=== PATIENT | male | born 1975 | race Caucasian/White ===

== ENCOUNTER 2018-09-25 20:27 | Outpatient (CLI) | payer OTHER | END 2018-09-25 20:28 | disposition home or self-care (01) | LOC: SC 20:27 | PROVIDERS: ATTEND Internal Medicine Pulmonary Disease | DX: G47.33 Obstructive sleep apnea (adult) (pediatric) (principal); G47.61 Periodic limb movement disorder | CPT/HCPCS: 95810 ==

== ENCOUNTER 2018-10-15 09:13 | Outpatient (CLI) | payer OTHER | END 2018-10-15 09:14 | disposition home or self-care (01) | LOC: SC 09:13 | PROVIDERS: ATTEND Nurse Practitioner Family | DX: G47.33 Obstructive sleep apnea (adult) (pediatric) (principal) | CPT/HCPCS: 99212; 99214 ==

== ENCOUNTER 2018-12-28 09:07 | Outpatient (CLI) | payer OTHER | END 2018-12-28 09:08 | disposition home or self-care (01) | LOC: SC 09:07 | PROVIDERS: ATTEND Nurse Practitioner Family | DX: G47.33 Obstructive sleep apnea (adult) (pediatric) (principal) | CPT/HCPCS: 99212; 99214 ==

== ENCOUNTER 2019-01-27 09:11 | Outpatient (CLI) | payer OTHER | END 2019-01-27 09:12 | disposition home or self-care (01) | LOC: SC 09:11 | PROVIDERS: ATTEND Nurse Practitioner Family | DX: G47.33 Obstructive sleep apnea (adult) (pediatric) (principal) | CPT/HCPCS: 99212; 99214 ==

== ENCOUNTER 2019-01-29 20:26 | Emergency (ER) | payer OTHER ==
[2019-01-29 20:54] LABS: BILIRUBIN,URINE NEGATIVE (NEGATIVE); GLUCOSE, URINE (UA) NEGATIVE (NEGATIVE); KETONES,URINE (UA) NEGATIVE (NEGATIVE); LEUKOCYTE ESTERASE, URINE NEGATIVE (NEGATIVE); NITRITE,URINE NEGATIVE (NEGATIVE); OCCULT BLOOD,URINE NEGATIVE (NEGATIVE); PH,URINE 6.5 PH (5.0-7.5); PROTEIN,URINE NEGATIVE (NEGATIVE); UROBILINOGEN,URINE 0.2 (NORMAL) E.U./dL (NORMAL)
[2019-01-29 20:56] LABS: BASOPHILS % (AUTO) 0.5 %; EOSINOPHILS # (AUTO) 0.1 10^3/uL (0.0-0.7); EOSINOPHILS % (AUTO) 1.5 %; HGB - HEMOGLOBIN 15.2 g/dL (14.0-18.0); MEAN CORPUSCULAR HGB CONC 32.9 g/dL (32.0-36.0); MEAN CORPUSCULAR VOLUME 85.3 fL (80.0-94.0); MEAN PLATELET VOLUME 8.2 fL (7.4-11.4); MONOCYTES # (AUTO) 0.8 10^3/uL (0.0-1.0); MONOCYTES % (AUTO) 8.6 %; NEUTROPHILS # (AUTO) 6.9 10^3/uL (1.5-6.6); NEUTROPHILS % (AUTO) 69.4 %; PLT - PLATELET COUNT 234 10^3/uL (130-450); RED BLOOD COUNT 5.41 10^6/uL (4.70-6.10); RED CELL DISTRIBUTION WIDTH 14.3 % (12.0-15.0); WHITE BLOOD COUNT 9.9 x10^3/uL (4.8-10.8)
[2019-01-29 20:57] LABS: CLARITY,URINE CLEAR (CLEAR)
[2019-01-29 21:11] LABS: ALBUMIN 4.5 g/dL (3.2-5.5); ALBUMIN/GLOBULIN RATIO 1.4 (1.0-2.2); BILIRUBIN,TOTAL 0.5 mg/dL (0.2-1.0); CALCIUM 9.4 mg/dL (8.5-10.3); CREATININE 0.9 mg/dL (0.6-1.2); TOTAL PROTEIN 7.8 g/dL (6.7-8.2)
--- NOTE | 2019-01-29 21:57 | ED Physician Documentation ---
PD HPI ABD PAIN - Stated complaint Stated Complaint: ABD PX - Chief complaint Chief Complaint: Abd Pain - History obtained from History obtained from: Patient - History of Present Illness Timing - onset: How many days ago (2-3) Timing - duration: Days (2-3) Timing - details: Gradual onset, Still present Quality: Aching, Sharp, Pain Location: LUQ Radiation: Chest, Left flank Improved by: No: Eating Worsened by: Breathing, Position (feels worse lying on side). No: Eating, Moving, Palpation Associated symptoms: Fever (felt some chills/feverish today). No: Nausea, Vomiting, Diarrhea, Constipation, Dysuria Similar symptoms before: Has not had sx before Recently seen: Not recently seen Review of Systems Constitutional: reports: Fever (mild today), Chills Nose: reports: Rhinorrhea / runny nose, Congestion Throat: reports: Sore throat Cardiac: denies: Palpitations Respiratory: reports: Cough (mild). denies: Dyspnea, Wheezing GI: reports: Abdominal Pain, Nausea. denies: Vomiting, Constipation, Diarrhea : denies: Dysuria, Frequency, Hematuria Skin: denies: Rash Musculoskeletal: denies: Neck pain, Back pain PD PAST MEDICAL HISTORY - Past Medical History Past Medical History: Yes Cardiovascular: Hypertension - Past Surgical History Past Surgical History: Yes General: Colonoscopy, Other - Present Medications Home Medications: Ambulatory Orders Medication Instructions Recorded Confirmed Azithromycin [Zithromax] 0 mg PO DAILY #6 tablet 01/30/19 Hydrocodone/Acetaminophen [[place] 1 each PO Q6H PRN #15 tablet 01/30/19 5-325 Tablet] Naproxen 500 mg PO BID #20 tablet 01/30/19 - Allergies Allergies/Adverse Reactions: Allergies Allergy/AdvReac Type Severity Reaction Status Date / Time acetaminophen [From Percocet] AdvReac Nausea Verified 01/29/19 20:32 oxycodone [From Percocet] AdvReac Nausea Verified 01/29/19 20:32 - Social History Does the pt smoke?: No Smoking Status: Never smoker Does the pt drink ETOH?: Yes Does the pt have substance abuse?: No - Immunizations Immunizations are current?: Yes PD ED PE NORMAL - Vitals Vital signs reviewed: Yes - General General: Alert and oriented X 3, No acute distress, Well developed/nourished - HEENT HEENT: Pharynx benign - Neck Neck: Supple, no meningeal sign, No adenopathy - Cardiac Cardiac: RRR, No murmur - Respiratory Respiratory: No: Clear bilaterally (no wheezing, mild congestion heard left lung base. ) - Abdomen Abdomen: Normal bowel sounds, Soft, Non distended, Other (tender LUQ with local guarding but no percussion nor rebound tenderness. ) - Back Back: No CVA TTP - Derm Derm: Normal color, Warm and dry, No rash - Extremities Extremities: No deformity, No tenderness to palpate, No edema, No calf tenderness / cord - Neuro Neuro: Alert and oriented X 3, No motor deficit, Normal speech Results - Vitals Vitals: Oxygen O2 Source Room air - Labs Labs: Laboratory Tests 01/29/19 01/29/19 01/29/19 20:39 20:48 20:48 WBC 9.9 RBC 5.41 Hgb 15.2 Hct 46.1 MCV 85.3 MCH 28.0 MCHC 32.9 RDW 14.3 Plt Count 234 MPV 8.2 Neut # (Auto) 6.9 H Lymph # (Auto) 2.0 [place] # (Auto) 0.8 Eos # (Auto) 0.1 Baso # (Auto) 0.0 Absolute Nucleated RBC 0.00 Nucleated RBC % 0.0 Sodium 138 Potassium 3.9 Chloride 101 Carbon Dioxide 28 Anion Gap 9.0 BUN 15 Creatinine 0.9 Estimated GFR (MDRD) 92 Glucose 135 H Calcium 9.4 Total Bilirubin 0.5 AST 22 ALT 38 Alkaline Phosphatase 73 Total Protein 7.8 Albumin 4.5 Globulin 3.3 Albumin/Globulin Ratio 1.4 Lipase 29 Urine Color YELLOW Urine Clarity CLEAR Urine pH 6.5 Ur Specific [place] 1.015 Urine Protein NEGATIVE Urine Glucose (UA) NEGATIVE Urine Ketones NEGATIVE Urine Occult Blood NEGATIVE Urine Nitrite NEGATIVE Urine Bilirubin NEGATIVE Urine Urobilinogen 0.2 (NORMAL) Ur Leukocyte Esterase NEGATIVE Ur Microscopic Review NOT INDICATED Urine Culture Comments NOT INDICATED PD MEDICAL DECISION MAKING - ED course Complexity details: reviewed results (surprisingly, no signs of intra-abdominal process, but does have left lower pneumonia. Had had minimal cough and not feeling URI. No unusual exposures to illness (children have CF and carriers of MRSA and Pseudomonas but no current active infections).), considered differential, d/w patient Departure - Departure Disposition: Home, Self Care Clinical Impression: Abdominal pain, left upper quadrant Pneumonia Qualifiers: Pneumonia type: due to unspecified organism Laterality: left Lung location: lower lobe of lung Qualified Code(s): J18.1 - Lobar pneumonia, unspecified organism Condition: Stable Record reviewed to determine appropriate education?: Yes Instructions: ED Pneumonia Adult Follow-Up: ARTEMIO HERNANDEZ MD [Primary Care Provider] - Prescriptions: Azithromycin [Zithromax] 0 mg PO DAILY #6 tablet Hydrocodone/Acetaminophen [[place] 5-325 Tablet] 1 each PO Q6H PRN #15 tablet PRN Reason: Pain Naproxen 500 mg PO BID #20 tablet Comments: Stay well-hydrated. Rest at home for 2 to 3 days. Use naproxen anti- inflammatory twice daily for the next 7 to 10 days. Add Tylenol 4 times a day for pain or hydrocodone for worse pain. Your CT showed a normal appearance in the abdominal cavity. You do have fluid in the lower left lung consistent with pneumonia. We will treated with antibio tic azithromycin. Recheck with your primary care in about 3 days for reevaluation. Return if worsening symptoms. Forms: Activity restrictions Discharge Date/Time: 01/30/19 00:32
[2019-01-29] MEDS ORDERED: SODIUM CHLORIDE 0.9% 1,000 ML IV ONE (22:16)
[2019-01-29] MEDS ORDERED: KETOROLAC 15 MG/ML VIAL IVP STA (22:16)
[2019-01-29] MEDS ORDERED: ONDANSETRON 4 MG/2 ML VIAL IVP STA (22:16)
[2019-01-29] MEDS ORDERED: HYDROmorphone 1 MG/ML CARPUJECT IVP STA (22:16)
[2019-01-29] MEDS ORDERED: IOVERSOL 320 100 ML VIAL IVP ONE ×2 (22:37→23:00)
--- NOTE | 2019-01-29 23:19 | CT Report ---
Reason: LUQ abd pain for 3 days; worsening Procedure Date: 01/29/2019 Accession Number: [id number] / [id number] Procedure: CT - Abdomen/Pelvis W CPT Code: FULL RESULT: EXAM: CT ABDOMEN AND PELVIS EXAM DATE: 01/29/2019 10:45 PM. CLINICAL HISTORY: Left upper quadrant abdominal pain for 3 days, worsening. COMPARISONS: None. TECHNIQUE: Routine helical CT imaging was performed through the abdomen and pelvis. IV contrast: 100 mL OPTIRAY 320. Enteric contrast: No. Reconstructions: Coronal and sagittal. In accordance with CT protocol optimization, one or more of the following dose reduction techniques were utilized for this exam: automated exposure control, adjustment of mA and/or KV based on patient size, or use of iterative reconstructive technique. FINDINGS: Lung bases: Small left pleural effusion. Mild patchy left lower lobe lung consolidations at the base with adjacent airspace disease. Mild lingular consolidation. These findings are concerning for left lower lobe and lingular pneumonia. Liver: Diffuse fatty liver. Gallbladder: Unremarkable. Bile Ducts: Unremarkable. Pancreas: Unremarkable. Spleen: Unremarkable. Adrenals: Unremarkable. Kidneys: Unremarkable. Bowel: Normal appendix. No acute bowel findings are seen. No free fluid or free air. Pelvis: The bladder and remaining pelvic organs appear unremarkable. Vasculature: No acute findings. Bones: No acute bone findings. IMPRESSION: 1. Small left pleural effusion. Mild patchy left lower lobe lung consolidations at the base with adjacent airspace disease. Mild lingular consolidation. These findings are concerning for left lower lobe and lingular pneumonia. 2. Fatty liver. RADIA
[2019-01-29] MEDS ORDERED: cefTRIAXone 1 GM VIAL IVP STA (23:28)
[2019-01-29] MEDS ORDERED: levoFLOXacin 250 MG TABLET PO STA (23:57)
[2019-01-29] MEDS ORDERED: AZITHROMYCIN 250 MG TABLET PO STA (23:58)
[2019-01-30] MEDS ORDERED: HYDROcod/ACET 5/325 Prepack 4 PO STA (00:15)
[2019-01-30 00:25] VITALS: BP 125/90
== END 2019-01-30 00:32 | disposition home or self-care (01) ==
LOC: ED 20:26
DX: J18.1 Lobar pneumonia, unspecified organism (principal); R10.12 Left upper quadrant pain; K76.0 Fatty (change of) liver, not elsewhere classified; I10 Essential (primary) hypertension
CPT/HCPCS: 36415; 74177; 80053; 81003; 83690; 85025; 96361; 96374; 96375; 99283; 99284; A9270; J1170; Q9967; 81001; 87086

== ENCOUNTER 2019-03-22 09:14 | Outpatient (CLI) | payer OTHER | END 2019-03-22 09:15 | disposition home or self-care (01) | LOC: SC 09:14 | PROVIDERS: ATTEND Nurse Practitioner Family | DX: G47.33 Obstructive sleep apnea (adult) (pediatric) (principal) | CPT/HCPCS: 99212; 99214 ==

== ENCOUNTER 2019-05-24 09:11 | Outpatient (CLI) | payer OTHER ==
--- NOTE | 2019-05-27 18:37 | SLEEP CARE CONSULTATION ---
Information from patient questionnaire entered by Catrina Goodwin. I have reviewed and concur with the information entered by Catrina Goodwin. This document represents the service I personally performed and the decisions made by me, Maday Richardson, RN, MSN, LIQU[employer] FLOOR AND WALL APPLIER. History of Present Illness Previous diagnosis: Mild, Obstructive Sleep Apnea-Hypopnea Syndrome AHI: 14.6 Reason for CPAP/BiPAP follow up: other (2 MONTH FOLLOW UP) Equipment type: CPAP Equipment obtained from: [employer] Mask style: Nasal Mask brand: Resmed Backup mask available: Yes Last cushion change: 2 nights ago Prior sleep studies: Yes Year and Where: [address] [facility] CPAP Compliance Data - Data Reviewed with Patient Average duration of nightly device use: 7H 15M Compliance rate %: 55.0 Current pressure setting (cmH2O): 11-13 Humidity settin Heated hose settin Subjective Missed days of use due to: reports: travel (sleeps on side if unable to use CPAP. ), other (slept on couch when guests over) Patient concerns: reports: air blowing in eyes (a few times ). denies: aerophagia, mask discomfort, mask leak noise, condensation in mask/hose, nasal congestion, dry mouth, nose, throat, epistaxis Observed to snore while using device: Yes (noted by spouse a few times) Current pressure setting perceived as: comfortable On therapy, patient: reports: sleeping better, awakening more refreshed, being more awake and alert during the day, more rested overall. denies: drowsiness while driving Initial [place] Sleepiness Scale score: 17 Current [place] Sleepiness Scale score: 5 Allergies and Home Medications Known drug allergies: Yes Home medication list reviewed: Yes Allergy and home medication list: Medication Name (generic/name brand) Strength & Dosage Omeprazole (Prilosec) 20mg cap one daily as needed. Allergy List Soy Wheat Review of Systems Review of systems same as previous: Yes Physical Exam Blood Pressure: 114/70 Cuff size: regular Heart Rate: 68 O2 Saturation: 98 Height: 5 ft 9.5 in Weight (kg): 194 lb 6.4 oz Weight change since last visit: lost 12 pounds Body Mass Index: 28.3 BMI Classification: Overweight Impression and Plan 1. Obstructive Sleep Apnea-Hypopnea Syndrome, moderate, with fair treatment compliance and elevated residual AHI. On CPAP therapy, the patient has better sleep quality and is more rested overall. The elevated AHI seems to be partially only due to mask leaks. Patient is advised to get rid of old mask cushions he is rotating as they lose form. It is okay to keep one month as spare for emergency. To reduce overall AHI, I will change his autoCPAP pressure to [id number]. He is advised to contact me if the pressure uncomfortable. He has lost about 12 pounds and plans on keeping this range of weight by maintaining a Mediterranean diet plan. He states he feels better on his diet. His compliance fell due to traveling and overnight guests. While traveling, he slept less overall to maximize time at relatives and amusement park. Patient advised to use CPAP with all sleep for maximum benefit of treatment. Patient's apnea severity and rationale for treatment to reduce apnea, improve sleep quality and reduce cardiovascular and cerebrovascular events was reviewed. I advised him to use CPAP with all sleep for maximum benefit of treatment as well as to meet insurance compliance goals. If unable to use CPAP, he is advised to avoid supine sleep as his apnea is primarily in supine position. * * Change CPAP pressure to 12-15 cmH2O * Use CPAP with all sleep. * Notify me if snoring with mask or feeling that the pressure is too much or too little * Continue to lose weight * Return for follow up in 2 month, or sooner if concerns arise I spent 100% of this 25 minute visit face to face with the patient with greater than 50% of this was spent time counseling the patient and coordination of care.
[2019-05-27 18:38] VITALS: BP 114/70
== END 2019-05-24 09:12 | disposition home or self-care (01) ==
LOC: SC 09:11
PROVIDERS: ATTEND Nurse Practitioner Family
DX: G47.33 Obstructive sleep apnea (adult) (pediatric) (principal)
CPT/HCPCS: 99212; 99214

== ENCOUNTER 2019-09-28 09:12 | Outpatient (CLI) | payer OTHER ==
[2019-09-28 10:15] VITALS: BP 114/80
--- NOTE | 2019-09-28 10:15 | SLEEP CARE CONSULTATION ---
Information from patient questionnaire entered by Darleen Rodriguez. I have reviewed and concur with the information entered by Darleen Rodriguez. This document represents the service I personally performed and the decisions made by me, Maday Richardson, RN, MSN, GAS DISPENSER. History of Present Illness Previous diagnosis: Mild, Obstructive Sleep Apnea-Hypopnea Syndrome AHI: 14.6 Reason for follow up: other (2 month) Equipment type: CPAP Equipment obtained from: [employer] Mask style: Nasal (Air Fit) Mask brand: Resmed Backup mask available: Yes Last cushion change: less than week ago HPI additional information: The CPAP pressure change comfortable. He does not feel he feel he improved his compliance due to flu and cold. CPAP Compliance Data - Data Reviewed with Patient Average duration of nightly device use: 6.5 Compliance rate %: 61.7 (60 days) Current pressure setting (cmH2O): 12-14 Humidity settin Heated hose settin Average residual AHI: 5.5 Central apnea: 0.9 Obstructive apnea: 2.9 Hypopnea: 1.7 Average large leak: 7 min 51 sec Subjective Missed days of use due to: reports: illness Patient concerns: reports: dry mouth, nose, throat (occasionally mild mouth dryness. none recently. He is not aware how to change humidity . ). denies: aerophagia, mask discomfort, air blowing in eyes, mask leak noise, condensation in mask/hose, nasal congestion, epistaxis Observed to snore while using device: No Current pressure setting perceived as: comfortable On therapy, patient: reports: sleeping better, awakening more refreshed, being more awake and alert during the day, more rested overall Initial [place] Sleepiness Scale score: 17 Current [place] Sleepiness Scale score: 3 Allergies and Home Medications Known drug allergies: Yes (see above) Home medication list reviewed: Yes (no medications at this time. ) Review of Systems Review of systems same as previous: No (Ill with flu and then cold ) Physical Exam Blood Pressure: 114/80 Cuff size: long Heart Rate: 94 O2 Saturation: 96 Height: 5 ft 9.5 in Weight: 210 lb 12.8 oz Weight change since last visit: gained 4 pounds Body Mass Index: 30.7 BMI Classification: Obesity Class 1 Impression and Plan 1. Obstructive Sleep Apnea-Hypopnea Syndrome, mild, with fair treatment compliance and slightly elevated residual apnea. On CPAP therapy, the patient has better sleep quality and is more rested overall. Since he has reduced CPAP compliance when has nasal congestion and / or ill, I discussed the possibility of using a full face mask during these times or all the time if comfortable. I showed him some samples and he would like to try the Res Med F 30. I will write a mask refitting order. His oral dryness could be from opening his mouth during sleep or inadequate humidity. Thus Ishowed him how to adjust the humidity and heated hose to improve moisture with rationale discussed and written why to adjust in future. Printed instructions given. He has gained more weight and has plans to lose in next 6 weeks for his PRT. I again reviewed how his weight affects his apnea and his CPAP pressure requirements. For his residual AHI, I will increase range of his auto CPAP to [id number]. This range should allow higher range to reduce residual and lower range to accomodate his weight loss goal to reach 186 in November for his PRT. Symptoms to report to adjust CPAP pressure further with rationale discussed. Since his apnea is more severe supine if unable to use CPAP such as when ill, he is advised to avoid sleeping supine with pillow positioning. Patient's apnea severity and rationale for treatment to reduce apnea, improve sleep quality and reduce cardiovascular and cerebrovascular events was reviewed. I reviewed with patient that if he meets compliance goal with better CPAP use at next visit, his follow up will be changed to 6 months and if at that visit, his compliance is still good, follow up goal is one year unless other concerns need to be addressed. * * Change CPAP pressure to 12-15 cmH2O * Implement methods to reduce oral dryness * mask refitting * Notify me if snoring with mask or feeling that the pressure is too much or too little * Attempt to lose weight * Call this office if any problems using CPAP * Return for follow up in 2 months , or sooner if concerns arise Time Spent with Patient (minutes): 30 I spent 100% of this visit face to face with the patient with greater than 50% of this was spent time counseling the patient and coordination of care.
== END 2019-09-28 09:13 | disposition home or self-care (01) ==
LOC: SC 09:12
PROVIDERS: ATTEND Nurse Practitioner Family
DX: G47.33 Obstructive sleep apnea (adult) (pediatric) (principal); E66.9 Obesity, unspecified; Z68.30 Body mass index [BMI] 30.0-30.9, adult
CPT/HCPCS: 99212; 99214

== ENCOUNTER 2020-01-24 11:41 | Outpatient (CLI) | payer OTHER ==
--- NOTE | 2020-01-24 11:30 | SLEEP CARE CONSULTATION ---
Information from patient questionnaire entered by Darleen Rodriguez. I have reviewed and concur with the information entered by Darleen Rodriguez. This document represents the service I personally performed and the decisions made by me, Maday Richardson, RN, MSN, COMPUTERIZED MILL RECORDER. History of Present Illness Service Date and Time: 01/24/2020 1100 Previous diagnosis: Mild, Obstructive Sleep Apnea-Hypopnea Syndrome AHI: 14.6 (in 2019) Reason for follow up: other (4 month) Equipment type: CPAP Equipment obtained from: [employer] (getting supplies as needed) Mask style: Nasal pillows Backup mask available: No (old mask) Last cushion change: a week ago CPAP Compliance Data - Data Reviewed with Patient Average duration of nightly device use: 6.3 Compliance rate %: 96.7 (30 days (54.4 last 90 days)) Current pressure setting (cmH2O): 12-15 Humidity settin Heated hose settin Average residual AHI: 4.5 Average large leak: 14 min 44 sec Subjective Missed days of use due to: reports: illness (cold ), other (change in schedule due to Covid 19) Patient concerns: reports: dry mouth, nose, throat. denies: aerophagia, mask discomfort, air blowing in eyes, mask leak noise, condensation in mask/hose, nasal congestion, epistaxis, other (mild dry mouth occasionally ) Observed to snore while using device: Yes (rare) Current pressure setting perceived as: comfortable On therapy, patient: reports: sleeping better, awakening more refreshed, being more awake and alert during the day, more rested overall. denies: drowsiness while driving Initial [place] Sleepiness Scale score: 17 (in 2018) Allergies and Home Medications Home medication list reviewed: No (no change / no meds) Review of Systems Review of systems same as previous: Yes Physical Exam Height: 5 ft 9.5 in Weight: 197 lb (home weight) Body Mass Index: 28.6 BMI Classification: Overweight Impression and Plan 1. Obstructive Sleep Apnea-Hypopnea Syndrome, mild, with good treatment compliance and good apnea control. On CPAP therapy, the patient has better sleep quality and is more rested overall. Patient is pleased with benefit of CPAP treatment. The new CPAP pressure range reduced residual from 5.5 to 4.5. To reduce mild oral dryness, he is to increase humidity or reduce heated hose with rational discussed. The higher humidity will also reduce nasal congestion. In addition he is use saline nasal spray to clear nose of dried secretions and wash off adhering allergens with prior to CPAP. A steamy shower is often helpful to wash off body allergens and facilitate nasal drainage. I will also reorder a full face mask interface to be used when unable to breathe through his nose. Nasal allergies can make it difficult to use his nasal mask affecting his past compliance. He is to contact [facility] to see when he is due for a new mask. At last visit, he wanted to try a hiogi F30 full face mask of samples shown. Patient has lost weight. Currently patients BMI is 28.7 obesity class . Thus patient is advised to continue to lose weight. Weight loss can be done with reducing portion size, reducing refined foods and balancing content with vegetables, fruit and protein. A diet consultation can be helpful in achieving optimal weight loss goals. The patient would like to reduce to 10 pounds. Patient encouraged to discuss their weight loss goals with their PCP and consider a referral to a chief lifestyle officer.The patient's CPAP pressure range should accommodate some weight loss. Symptoms to report for additional pressure adjustment discussed. Patient's apnea severity and rationale for treatment to reduce apnea, improve sleep quality and reduce hypertension, cardiovascular and cerebrovascular events was reviewed. * Continue auto CPAP pressure at 12-15 cmH2O * mask refitting - * Implement methods to reduce oral dryness and nasal congestion. * Notify me if snoring with mask or feeling that the pressure is too much or too little * continue to lose weight * Call this office if any problems using CPAP * Return for follow up in 6 months, or sooner if concerns arise Visit Type: Telehealth Video (to reduce risk of Covid 19 exposure.) Video Type: GroupSwim Patient Location: Home Location of Provider: Home Patient agrees and consents to this telehealth visit type: Yes Patient agrees to have their insurance billed: Yes Time Spent with Patient (minutes): 18 Provider Statement: I spent 100% of the Telehealth Video Call with the patient with greater than 50% spent counseling the patient and coordination of care.
== END 2020-01-24 11:42 | disposition home or self-care (01) ==
LOC: SC 11:41
PROVIDERS: ATTEND Nurse Practitioner Family
DX: G47.33 Obstructive sleep apnea (adult) (pediatric) (principal); E66.3 Overweight; Z68.28 Body mass index [BMI] 28.0-28.9, adult

== ENCOUNTER 2020-03-22 09:40 | Emergency (ER) | payer OTHER ==
[2020-03-22 09:49] VITALS: BP 165/92
[2020-03-22] MEDS ORDERED: NEOMYCIN/POLYMYX/HC OTIC DROPS LEFTEAR STA (10:21)
--- NOTE | 2020-03-22 10:26 | ED Physician Documentation ---
PD HPI HEENT - Stated complaint Stated Complaint: PX IN L EAR - Chief complaint Chief Complaint: Heent - History obtained from History obtained from: Patient - History of Present Illness Timing - onset: How many days ago (4) Timing - duration: Days (4) Timing - details: Gradual onset, Still present Location: Left ear Improves: Nothing Worsens: Position, Other (touching) Associated symptoms: Swollen nodes, Headache. 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 He indicates that he thinks he fell asleep with his earbud in and had a very sweaty ear [place]. PD PAST MEDICAL HISTORY - Past Medical History Past Medical History: Yes Cardiovascular: Hypertension - Past Surgical History Past Surgical History: Yes General: Colonoscopy, Other - Present Medications Home Medications: Ambulatory Orders Medication Instructions Recorded Confirmed Azithromycin [Zithromax] 0 mg PO DAILY #6 tablet 01/30/19 Hydrocodone/Acetaminophen [[place] 1 each PO Q6H PRN #15 tablet 01/30/19 5-325 Tablet] Naproxen 500 mg PO BID #20 tablet 01/30/19 Neomycin/Polymyx/Hc Otic Drops 4 drops OT QID #1 bottle 03/22/20 [Cortisporin Ear Susp] - Allergies Allergies/Adverse Reactions: Allergies Allergy/AdvReac Type Severity Reaction Status Date / Time acetaminophen [From Percocet] AdvReac Nausea Verified 03/22/20 09:46 oxycodone [From Percocet] AdvReac Nausea Verified 03/22/20 09:46 - Social History Does the pt smoke?: No Smoking Status: Never smoker Does the pt drink ETOH?: Yes Does the pt have substance abuse?: No - Immunizations Immunizations are current?: Yes PD ED PE NORMAL - Vitals Vital signs reviewed: Yes (hypertensive ) - General General: Alert and oriented X 3, No acute distress, Well developed/nourished - HEENT HEENT: Atraumatic, PERRL, EOMI, Other (The right TM is normal the left ear canal is swollen erythematous and there is debrie in the canal. There is tenderness to push on the pinna and pull on the tragus. ) - Neck Neck: Supple, no meningeal sign, No bony TTP, Other (adenopathy at the angle of the jaw is present small and tender. ) - Cardiac Cardiac: RRR, No murmur - Respiratory Respiratory: No respiratory distress, Clear bilaterally - Back Back: No CVA TTP, No spinal TTP - Derm Derm: Normal color, Warm and dry, No rash - Extremities Extremities: No deformity, No edema - Neuro Neuro: Alert and oriented X 3, manager audio 2-12 intact, No motor deficit, No sensory deficit, Normal speech Eye Opening: Spontaneous Motor: Obeys Commands Verbal: Oriented GCS Score: 15 - Psych Psych: Normal mood, Normal affect Results - Vitals Vitals: Vital Signs - 24 hr 03/22/20 09:42 Temperature 36.3 C L Heart Rate 90 Respiratory 16 Rate Blood Pressure 165/92 H O2 Saturation 98 Oxygen O2 Source Room air PD MEDICAL DECISION MAKING - ED course Complexity details: considered differential, d/w patient ED course: 44-year-old male with acute left otitis externa has swelling and pain associated with this and a jasso ear wick is placed as well as Cortisporin otic suspension. The patient is instructed to place the drops every 6 hours and expect resolution of symptoms over the next 2 to 3 days. Departure - Departure Disposition: 01 Home, Self Care Clinical Impression: Otitis externa Qualifiers: Otitis externa type: unspecified type Chronicity: acute Laterality: left Qualified Code(s): H60.502 - Unspecified acute noninfective otitis externa, left ear Condition: Stable Instructions: ED Otitis Externa Follow-Up: ARTEMIO HERNANDEZ MD [Primary Care Provider] - Prescriptions: Neomycin/Polymyx/Hc Otic Drops [Cortisporin Ear Susp] 4 drops OT QID #1 bottle Comments: There is a wick in the left ear that will need to be removed tomorrow. Expect your pain and swelling to improve day by day and if it is not or if it worsens return to the emergency department.
== END 2020-03-22 10:35 | disposition home or self-care (01) ==
LOC: ED 09:40
DX: H60.502 Unspecified acute noninfective otitis externa, left ear (principal); I10 Essential (primary) hypertension
CPT/HCPCS: 99281; 99282; A9270

== ENCOUNTER 2020-07-10 09:23 | Outpatient (CLI) | payer OTHER ==
--- NOTE | 2020-07-10 10:26 | SLEEP CARE CONSULTATION ---
Information from patient questionnaire entered by Darleen Rodriguez. I have reviewed and concur with the information entered by Darleen Rodriguez. This document represents the service I personally performed and the decisions made by , Denita Mariee ARNP. History of Present Illness Service Date and Time: 07/10/2020922 Previous diagnosis: Mild, Obstructive Sleep Apnea-Hypopnea Syndrome AHI: 14.6 (in 2019) Reason for follow up: six month Equipment type: CPAP Mask style: Nasal pillows Mask brand: Resmed Backup mask available: Yes (other mask) Last cushion change: 1 week Prior sleep studies: Yes Year and Where: 2018 - [facility] Type of Sleep Study: Polysomnography HPI additional information: SOHAIL ODONNELL was diagnosed to have mild, AHI 14.6, obstructive sleep apnea- hypopnea syndrome and returned today for CPAP therapy six month follow-up. Sleep Study - Results Prior sleep studies: Yes Year and Where: 2018 [facility] CPAP Compliance Data - Data Reviewed with Patient Average duration of nightly device use: 6.7 Compliance rate %: 98.9 (90 days) Current pressure setting (cmH2O): 12-15 Humidity settin Heated hose settin Average residual AHI: 5.3 Central apnea: 0.8 Obstructive apnea: 3.0 Average large leak: 10 min 55 sec Subjective Missed days of use due to: reports: travel Patient concerns: reports: dry mouth, nose, throat (dry mouth, adjusts humidity as needed). denies: aerophagia, mask discomfort, air blowing in eyes, mask leak noise, condensation in mask/hose, nasal congestion, epistaxis, other Observed to snore while using device: No Current pressure setting perceived as: comfortable On therapy, patient: reports: sleeping better, awakening more refreshed, being more awake and alert during the day, more rested overall. denies: drowsiness while driving Initial [place] Sleepiness Scale score: 17 (in 2018) Current [place] Sleepiness Scale score: 0 Allergies and Home Medications Drug allergies reviewed: Yes (acetaminophen, oxycodone) Home medication list reviewed: Yes (no changes) Review of Systems Review of systems same as previous: Yes (no changes) Physical Exam Heart Rate: 84 O2 Saturation: 98 Height: 5 ft 9 in Weight: 200 lb Body Mass Index: 29.5 BMI Classification: Overweight Impression and Plan 1. Obstructive Sleep Apnea-Hypopnea Syndrome, mild, with good treatment compliance and fair apnea control with slightly elevated residual AHI. On CPAP therapy, the patient has better sleep quality and is more rested overall. He occasionally gets oral dryness and adjusts his humidity settings as needed with good results. I will adjust his APAP pressure to 14-16 cm H2O to help reduce his residual AHI. Patient's apnea severity and rationale for treatment to reduce apnea, improve sleep quality and reduce cardiovascular and cerebrovascular events was reviewed. I also reviewed the benefit of consistent device use of CPAP for gastric reflux. * Changeauto CPAP pressure to 14-16 cmH2O * Notify me if snoring with mask or feeling that the pressure is too much or too little * Attempt to lose weight * Call this office if any problems using CPAP * Return for follow up in 1-2 months, or sooner if concerns arise Counseling Topics: Spare mask, Weight loss health impact Visit Type: In Office Time Spent with Patient (minutes): 18 Provider Statement: I spent 100% of the Face to Face Visit with the patient with greater than 50% spent counseling the patient and coordination of care.
== END 2020-07-10 09:24 | disposition home or self-care (01) ==
LOC: SC 09:23
PROVIDERS: ATTEND Nurse Practitioner Family
DX: G47.33 Obstructive sleep apnea (adult) (pediatric) (principal); E66.3 Overweight; Z68.29 Body mass index [BMI] 29.0-29.9, adult
CPT/HCPCS: 99212

== ENCOUNTER 2020-08-22 10:24 | Outpatient (CLI) | payer OTHER ==
--- NOTE | 2020-08-22 10:30 | SLEEP CARE CONSULTATION ---
Information from patient questionnaire entered by Darleen Rodriguez. I have reviewed and concur with the information entered by Darleen Rodriguez. This document represents the service I personally performed and the decisions made by , Denita Mariee ARNP. History of Present Illness Service Date and Time: 08/22/2020 1020 Previous diagnosis: Mild, Obstructive Sleep Apnea-Hypopnea Syndrome AHI: 14.6 (in 2019) Reason for follow up: other (6 week with pressure change) Equipment type: CPAP Equipment obtained from: [employer] (getting supplies as needed) Mask style: Nasal pillows Backup mask available: Yes (old mask) Last cushion change: 3 days ago Prior sleep studies: Yes Year and Where: 2019 - [facility] Sleep Type of Sleep Study: Polysomnography HPI additional information: SOHAIL ODONNELL was diagnosed to have mild, AHI 14.6, obstructive sleep apnea- hypopnea syndrome and returns via Telehealth visit today for CPAP therapy 6 week pressure change follow-up. CPAP Compliance Data - Data Reviewed with Patient Average duration of nightly device use: 6 hr 28 min Compliance rate %: 93.3 Current pressure setting (cmH2O): 14-16 Humidity settin Heated hose settin Average residual AHI: 6.3 Average large leak: 24 min 48 sec Subjective Patient concerns: denies: aerophagia, mask discomfort, air blowing in eyes, mask leak noise, condensation in mask/hose, nasal congestion, dry mouth, nose, throat, epistaxis, other Observed to snore while using device: No Current pressure setting perceived as: comfortable On therapy, patient: reports: sleeping better, awakening more refreshed, being more awake and alert during the day, more rested overall. denies: drowsiness while driving Initial [place] Sleepiness Scale score: 17 (in 2018) Current [place] Sleepiness Scale score: 3 Allergies and Home Medications Drug allergies reviewed: Yes (acetaminophen, oxycodone) Home medication list reviewed: Yes (no changes) Review of Systems Review of systems same as previous: Yes (no changes) Physical Exam Vital signs obtained and entered by: Telehealth visit to limit exposure during Covid pandemic Height: 5 ft 9 in Impression and Plan 1. Obstructive Sleep Apnea-Hypopnea Syndrome, mild, with good treatment compliance and fair apnea control with an elevated residual AHI. On CPAP therapy, the patient has better sleep quality and is more rested overall. His download is showing central apnea at 1.1 and obstructive apnea at 3.4 with a residual AHI 6.3. I discussed with patient that he had better control with previous pressure and he voiced understaning. The patients pressure will be changed to autoCPAP 13-15 cmH20 for elevation of residual AHI. Patient advised to contact me if pressure change is uncomfortable so that it can be adjusted. Goals for apnea control discussed. Patient's apnea severity and rationale for treatment to reduce apnea, improve sleep quality and reduce cardiovascular and cerebrovascular events was reviewed. I also reviewed the benefit of consistent device use of CPAP for gastric reflux. * Changeauto CPAP pressure to 13-15 cmH2O * Notify me if snoring with mask or feeling that the pressure is too much or too little * Attempt to lose weight * Call this office if any problems using CPAP * Return for follow up in 1-2 months , or sooner if concerns arise Counseling Topics: Spare mask, Weight loss health impact Visit Type: Telehealth Video Video Type: [place] Patient Location: Home Location of Provider: Office Patient agrees and consents to this telehealth visit type: Yes Patient agrees to have their insurance billed: Yes Time Spent with Patient (minutes): 15 Provider Statement: I spent 100% of the Telehealth Video Call with the patient with greater than 50% spent counseling the patient and coordination of care.
== END 2020-08-22 10:25 | disposition home or self-care (01) ==
LOC: SC 10:24
PROVIDERS: ATTEND Nurse Practitioner Family
DX: G47.33 Obstructive sleep apnea (adult) (pediatric) (principal)

== ENCOUNTER 2020-10-10 11:12 | Outpatient (CLI) | payer OTHER ==
--- NOTE | 2020-10-10 11:07 | SLEEP CARE CONSULTATION ---
Information from patient questionnaire entered by Darleen Rodriguez. I have reviewed and concur with the information entered by Darleen Rodriguez. This document represents the service I personally performed and the decisions made by , Denita Mariee ARNP. History of Present Illness Service Date and Time: 10/10/2020 1040 Previous diagnosis: Mild, Obstructive Sleep Apnea-Hypopnea Syndrome AHI: 14.6 (in 2019) Reason for follow up: other (6 week with pressure change) Equipment type: CPAP Equipment obtained from: [employer] (getting supplies as needed) Mask style: Nasal pillows Backup mask available: Yes (old mask) Last cushion change: 2 weeks ago Prior sleep studies: Yes Year and Where: 2019 - [facility] Sleep Type of Sleep Study: Polysomnography HPI additional information: SOHAIL ODONNELL was diagnosed to have mild, AHI 14.6, obstructive sleep apnea- hypopnea syndrome and returns via Telehealth visit today for CPAP therapy six week pressure change follow-up. CPAP Compliance Data - Data Reviewed with Patient Average duration of nightly device use: 6 hr 6 min Compliance rate %: 60 Current pressure setting (cmH2O): 13-15 Humidity settin Heated hose settin Average residual AHI: 5.1 Average large leak: 12 min 36 sec Subjective Missed days of use due to: reports: travel, other (power outages) Patient concerns: reports: dry mouth, nose, throat (little bit but this is much improved). denies: aerophagia, mask discomfort, air blowing in eyes, mask leak noise, condensation in mask/hose, nasal congestion, epistaxis, other Observed to snore while using device: No Current pressure setting perceived as: comfortable On therapy, patient: reports: sleeping better, awakening more refreshed, being more awake and alert during the day, more rested overall. denies: drowsiness while driving Initial [place] Sleepiness Scale score: 17 (in 2018) Current [place] Sleepiness Scale score: 3 Allergies and Home Medications Home medication list reviewed: Yes (no changes) Review of Systems Review of systems same as previous: Yes (changes) Physical Exam Vital signs obtained and entered by: Telehealth visit to reduce exposure during covid pandemic Height: 5 ft 9 in Impression and Plan 1. Obstructive Sleep Apnea-Hypopnea Syndrome, mild, with fair treatment compliance and fair apnea control with slight elevation of residual AHI. On CPAP therapy, the patient has better sleep quality and is more rested overall. He is only slightly elevated with a mean pressure use of 13.6 cmH2O, average 14.2 cmH2O and maximum 14.6 cmH2O. The patients pressure will be changed to autoCPAP 14-15 cmH20 For elevation of residual AHI. Patient advised to contact me if pressure change is uncomfortable so that it can be adjusted. Goals for apnea control discussed. He feels his mask is fitting much better and he has less trouble with leaking and dry mouth with previous adjustments. Patient's apnea severity and rationale for treatment to reduce apnea, improve sleep quality and reduce cardiovascular and cerebrovascular events was reviewed. I also reviewed the benefit of consistent device use of CPAP for gastric reflux. * Changeauto CPAP pressure to 14-15 cmH2O * Notify me if snoring with mask or feeling that the pressure is too much or too little * Attempt to lose weight * Call this office if any problems using CPAP * Return for follow up in 1 year, or sooner if concerns arise Counseling Topics: Spare mask, Weight loss health impact Visit Type: Telehealth Video Video Type: Nadja Patient Location: Home Location of Provider: Office Patient agrees and consents to this telehealth visit type: Yes Patient agrees to have their insurance billed: Yes Time Spent with Patient (minutes): 15 Provider Statement: I spent 100% of the Telehealth Video Call with the patient with greater than 50% spent counseling the patient and coordination of care.
== END 2020-10-10 11:13 | disposition home or self-care (01) ==
LOC: SC 11:12
PROVIDERS: ATTEND Nurse Practitioner Family
DX: G47.33 Obstructive sleep apnea (adult) (pediatric) (principal)